=== PATIENT | male | born 1965 | race Caucasian/White ===

== ENCOUNTER 2020-10-19 17:44 | Inpatient (IN) | payer SELFPAY ==
[~2020-10-19] VITALS: Ht 172.7 cm; Wt 118.4 kg
[2020-10-19 17:44] VITALS: BP 113/93
[2020-10-19 18:46] LABS: BASO % 0.2 % (0.0-1.0); EOS % 0.1 % (1.0-4.0); HEMATOCRIT 41.9 % (42.0-52.0); LYMPH # 1.9 10*3/uL (1.3-4.4); LYMPH % 18.6 % (27.0-41.0); MEAN CORPUSCULAR HGB 28.3 pg (27.0-31.0); MEAN CORPUSCULAR HGB CONC 33.7 g/dl (33.0-37.0); MEAN PLATELET VOLUME 10.3 fl (9.6-12.3); MONO # 1.1 10*3/uL (0.1-1.0); NEUT # 7.2 10*3/uL (2.3-7.9); NEUT % 69.8 % (47.0-73.0); PLATELET COUNT AUTOMATED 226 10*3/uL (130-400); RED BLOOD COUNT 4.99 10*6/uL (4.50-5.90); RED CELL DISTRI WIDTH 12.4 % (0-14.5); WHITE BLOOD COUNT 10.3 10*3/uL (4.8-10.8)
[2020-10-19 19:01] LABS: ACT PARTIAL THROMBO TIME 28.5 SECONDS (20.0-32.1)
[2020-10-19 19:06] LABS: ALBUMIN 3.5 gm/dl (3.1-4.5); BUN 18 mg/dl (7-24); CHLORIDE 97 mmol/L (98-107); CREATININE 1.15 mg/dL (0.70-1.30); LDH 264 U/L (87-241); LIPASE 143 U/L (73-393); POTASSIUM 3.6 mmol/L (3.5-5.1); SGOT/AST 37 IU/L (3-35); SGPT/ALT 50 U/L (12-78); SODIUM 134 mmol/L (136-145)
[2020-10-19 19:09] LABS: ALKALINE PHOSPHATASE 89 U/L (45-117); TROPONIN I < 0.015 ng/ml (<0.045)
[2020-10-19 20:43] LABS: BILIRUBIN 1+ (Negative); BLOOD Negative (Negative); CLARITY Clear (Clear); COLOR Dark Yellow (Yellow); GLUCOSE Negative (Negative); KETONE 2+ (Negative); LEUKO ESTERASE Trace (Negative); NITRITE Negative (Negative); PH 5.5 (4.5-8.0); SPECIFIC GRAVITY >= 1.030 (1.001-1.030)
[2020-10-19 20:53] LABS: BACTERIA 2+; COARSE GRANULAR CAST 0-2; RBC 0-2 rbc/hpf (0-2)
[2020-10-19 20:54] LABS: MUCOUS TRACE
[2020-10-19 21:35] VITALS: BP 122/52
[2020-10-19 22:07] VITALS: BP 128/59
[2020-10-19 22:42] VITALS: BP 127/60
[2020-10-20 03:23] VITALS: BP 128/70
[2020-10-20 05:37] LABS: BUN 16 mg/dl (7-24); CHLORIDE 98 mmol/L (98-107); CHOLESTEROL 123 mg/dL (<200); CREATININE 0.93 mg/dL (0.70-1.30); POTASSIUM 3.7 mmol/L (3.5-5.1); SGOT/AST 32 IU/L (3-35); SGPT/ALT 47 U/L (12-78); SODIUM 134 mmol/L (136-145); TOTAL PROTEIN 7.2 gm/dL (6.4-8.2); TRIGLYCERIDES 125 mg/dl (<150)
[2020-10-20 05:39] LABS: ALKALINE PHOSPHATASE 79 U/L (45-117); LDH 217 U/L (87-241); LDL CHOLESTEROL 74 mg/dL (9-159)
[2020-10-20 06:21] LABS: BASO % 0.2 % (0.0-1.0); LYMPH # 1.5 10*3/uL (1.3-4.4); MEAN CELL VOLUME 86.2 fl (80.0-94.0); MEAN CORPUSCULAR HGB 29.5 pg (27.0-31.0); MEAN CORPUSCULAR HGB CONC 34.2 g/dl (33.0-37.0); MEAN PLATELET VOLUME 10.7 fl (9.6-12.3); MONO # 1.3 10*3/uL (0.1-1.0); MONO % 11.3 % (3.0-9.0); NEUT # 8.9 10*3/uL (2.3-7.9); PLATELET COUNT AUTOMATED 223 10*3/uL (130-400); RED BLOOD COUNT 4.41 10*6/uL (4.50-5.90); RED CELL DISTRI WIDTH 12.5 % (0-14.5); WHITE BLOOD COUNT 11.9 10*3/uL (4.8-10.8)
[2020-10-20 06:51] LABS: FERRITIN 937.7 ng/mL (22.0-322.0); VITAMIN D, 25-HYDROXY 20.8 ng/mL (30-100)
[2020-10-20 08:55] VITALS: BP 120/72
[2020-10-20 10:18] VITALS: BP 95/48
[2020-10-20 15:22] VITALS: BP 103/55
[2020-10-20 18:15] VITALS: BP 140/70
[2020-10-20 20:00] VITALS: BP 110/51
[2020-10-21] VITALS: BP 114/65
[2020-10-21 06:44] LABS: BASO % 0.1 % (0.0-1.0); EOS % 0.1 % (1.0-4.0); HEMATOCRIT 38.7 % (42.0-52.0); LYMPH # 2.6 10*3/uL (1.3-4.4); MEAN CELL VOLUME 84.9 fl (80.0-94.0); MEAN CORPUSCULAR HGB 28.7 pg (27.0-31.0); MEAN CORPUSCULAR HGB CONC 33.9 g/dl (33.0-37.0); MEAN PLATELET VOLUME 10.8 fl (9.6-12.3); MONO # 1.4 10*3/uL (0.1-1.0); MONO % 11.1 % (3.0-9.0); NEUT # 8.9 10*3/uL (2.3-7.9); NEUT % 68.2 % (47.0-73.0); PLATELET COUNT AUTOMATED 256 10*3/uL (130-400); RED BLOOD COUNT 4.56 10*6/uL (4.50-5.90); RED CELL DISTRI WIDTH 12.2 % (0-14.5)
[2020-10-21 07:02] LABS: ALKALINE PHOSPHATASE 78 U/L (45-117); BUN 23 mg/dl (7-24); CHLORIDE 102 mmol/L (98-107); CPK 162 U/L (39-308); CREATININE 0.88 mg/dL (0.70-1.30); LDH 220 U/L (87-241); POTASSIUM 3.8 mmol/L (3.5-5.1); SGOT/AST 24 IU/L (3-35); SGPT/ALT 44 U/L (12-78); SODIUM 137 mmol/L (136-145); TOTAL PROTEIN 7.3 gm/dL (6.4-8.2)
[2020-10-21 08:00] VITALS: BP 108/45
[2020-10-21 12:00] VITALS: BP 110/59
[2020-10-21 15:05] LABS: ABG BASE EXCESS 1.4 mmol/L (-2.0-2.0); ARTERIAL BLOOD GAS PH 7.454 (7.35-7.45); ARTERIAL BLOOD GAS PO2 93.1 (80-90)
[2020-10-21 16:00] VITALS: BP 112/64
[2020-10-21 20:00] VITALS: BP 110/41
[2020-10-22] VITALS: BP 97/61
[2020-10-22 07:51] LABS: BASO % 0.1 % (0.0-1.0); EOS % 0.2 % (1.0-4.0); HEMATOCRIT 37.7 % (42.0-52.0); LYMPH % 28.9 % (27.0-41.0); MEAN CELL VOLUME 84.2 fl (80.0-94.0); MEAN CORPUSCULAR HGB 27.7 pg (27.0-31.0); MEAN CORPUSCULAR HGB CONC 32.9 g/dl (33.0-37.0); MEAN PLATELET VOLUME 10.4 fl (9.6-12.3); MONO # 0.8 10*3/uL (0.1-1.0); MONO % 7.2 % (3.0-9.0); NEUT # 6.6 10*3/uL (2.3-7.9); NEUT % 63.2 % (47.0-73.0); PLATELET COUNT AUTOMATED 224 10*3/uL (130-400); RED BLOOD COUNT 4.48 10*6/uL (4.50-5.90); RED CELL DISTRI WIDTH 12.3 % (0-14.5); WHITE BLOOD COUNT 10.4 10*3/uL (4.8-10.8)
[2020-10-22 08:00] VITALS: BP 100/45
[2020-10-22 08:00] LABS: ABG BASE EXCESS 0.7 mmol/L (-2.0-2.0); ARTERIAL BLOOD GAS PH 7.439 (7.35-7.45)
[2020-10-22 08:06] LABS: ALBUMIN 2.8 gm/dl (3.1-4.5); ALKALINE PHOSPHATASE 66 U/L (45-117); BUN 20 mg/dl (7-24); CHLORIDE 105 mmol/L (98-107); CREATININE 0.82 mg/dL (0.70-1.30); LDH 163 U/L (87-241); POTASSIUM 3.7 mmol/L (3.5-5.1); SGOT/AST 14 IU/L (3-35); SGPT/ALT 37 U/L (12-78); SODIUM 139 mmol/L (136-145); TOTAL PROTEIN 6.8 gm/dL (6.4-8.2)
[2020-10-22 08:10] LABS: CPK 81 U/L (39-308)
[2020-10-22 12:00] VITALS: BP 94/43
[2020-10-22 16:00] VITALS: BP 96/47
[2020-10-22 20:00] VITALS: BP 105/52
[2020-10-23] VITALS: BP 96/42
[2020-10-23 06:23] LABS: BASO % 0.2 % (0.0-1.0); EOS % 0.3 % (1.0-4.0); HEMATOCRIT 38.1 % (42.0-52.0); LYMPH # 3.8 10*3/uL (1.3-4.4); LYMPH % 37.3 % (27.0-41.0); MEAN CELL VOLUME 85.6 fl (80.0-94.0); MEAN CORPUSCULAR HGB 28.3 pg (27.0-31.0); MEAN CORPUSCULAR HGB CONC 33.1 g/dl (33.0-37.0); MEAN PLATELET VOLUME 10.6 fl (9.6-12.3); NEUT # 5.3 10*3/uL (2.3-7.9); NEUT % 51.3 % (47.0-73.0); PLATELET COUNT AUTOMATED 250 10*3/uL (130-400); RED BLOOD COUNT 4.45 10*6/uL (4.50-5.90); RED CELL DISTRI WIDTH 12.2 % (0-14.5); WHITE BLOOD COUNT 10.3 10*3/uL (4.8-10.8)
[2020-10-23 06:41] LABS: ALBUMIN 2.8 gm/dl (3.1-4.5); BUN 16 mg/dl (7-24); CHLORIDE 106 mmol/L (98-107); CREATININE 0.79 mg/dL (0.70-1.30); LDH 200 U/L (87-241); POTASSIUM 3.8 mmol/L (3.5-5.1); SGOT/AST 37 IU/L (3-35); SGPT/ALT 77 U/L (12-78); SODIUM 139 mmol/L (136-145); TOTAL PROTEIN 6.5 gm/dL (6.4-8.2)
[2020-10-23 06:42] LABS: ALKALINE PHOSPHATASE 73 U/L (45-117); CPK 66 U/L (39-308)
[2020-10-23 08:00] VITALS: BP 102/60
[2020-10-23 08:12] LABS: ABG BASE EXCESS -0.8 mmol/L (-2.0-2.0); ARTERIAL BLOOD GAS PH 7.421 (7.35-7.45); ARTERIAL BLOOD GAS PO2 82.7 (80-90)
[2020-10-23 12:00] VITALS: BP 94/56
[2020-10-23] MEDS ORDERED: ECOTRIN325 M1 PO (12:38)
[2020-10-23] MEDS ORDERED: DECADRON6 M1 PO ×2 (13:05→15:39)
[2020-10-23 16:00] VITALS: BP 106/62
== END 2020-10-23 16:09 | disposition home or self-care (01) | DRG 177 ==
LOC: ED 17:44 → EDHOLD 10-20 02:50 → 4E 10-20 02:50
PROVIDERS: Emergency Medicine; Internal Medicine; Internal Medicine Critical Care Medicine; Registered Nurse; ADMIT Internal Medicine; ATTEND Internal Medicine
PROC: XW033E5 Introduction of Remdesivir Anti-infective into Peripheral Vein, Percutaneous Approach, New Technology Group 5 (ICD-10-PCS; principal; 2020-10-20)
DX: U07.1 COVID-19 (principal); J96.01 Acute respiratory failure with hypoxia; J12.82 Pneumonia due to coronavirus disease 2019; E44.0 Moderate protein-calorie malnutrition; E78.2 Mixed hyperlipidemia; E66.9 Obesity, unspecified; D72.829 Elevated white blood cell count, unspecified; R00.1 Bradycardia, unspecified; Z88.1 Allergy status to other antibiotic agents; Z81.8 Family history of other mental and behavioral disorders; Z68.38 Body mass index [BMI] 38.0-38.9, adult

== ENCOUNTER → 2020-11-14 | Outpatient (CLI) | payer SELFPAY ==
[~2020-11-14] MED LIST: DECADRON6 M1 PO; ECOTRIN325 M1 PO
== END | disposition home or self-care (01) ==
LOC: RESCLI 03:23
PROVIDERS: ATTEND Internal Medicine
DX: Z76.89 Persons encountering health services in other specified circumstances (principal); U07.1 COVID-19; E78.5 Hyperlipidemia, unspecified; R73.09 Other abnormal glucose; Z79.82 Long term (current) use of aspirin; Z88.8 Allergy status to other drugs, medicaments and biological substances